=== PATIENT | female | born 1990 | race Caucasian/White ===

== ENCOUNTER 2018-12-13 16:23 | Inpatient (IN) | payer OTHER ==
[~2018-12-13] VITALS: Ht 157.5 cm; Wt 75.0 kg
--- NOTE | 2018-12-13 17:10 | NUR ---
PATIENT ARRIVED TO ROOM AMBULATORY WITH FAMILY AT BEDSIDE, PATIENT STATED SHE HAS NOT EATEN ALL DAY AND WAS UNSURE IF SHE COULD GIVE A URINE SAMPLE, PT HAS ORDERS FOR BOLUS OF 1000ML OF N/S. ADVISED PT I WOULD NEED TO START IV AND START FLUIDS AND THEN CHECK WITH LEONARDO ANN IF SHE CAN EAT. PT HAS 22G IN RT FOREARM X1 STICK, PT TO BE NPO AFTER MIDNIGHT, PER MANJIT PT MAY HAVE CLEAR LIQUIDS, GAVE PT POPSICLE FOR NOW. NO S/S OF DISTRESS, PT STATES PAIN IS TOLERABLE, AFTER BOLUS WILL ADMINISTER PRN MEDS WELL ORDERED ABX. BED IN LOWEST POSITION, CL IN REACH CONTINUE WITH PLAN OF CARE
[2018-12-13] MEDS ORDERED: DOXYCYCLINE HY100 M2 PO (17:57)
[2018-12-13 18:44] VITALS: BMI 30.2
[2018-12-13 19:31] LABS: HEMOGLOBIN 10.2 g/dL (12-16); IMMATURE GRANULOCYTES 1.2 % (0-5); MCH 29.6 pg (26.0-34.0); MCHC 35.2 g/dL (31.0-37.0); MCV 84.1 fL (80.0-100.0); MEAN PLATELET VOLUME 9.5 fL (7.4-10.4); PLATELET COUNT 119 10x3/uL (130-400); RBC 3.45 10x6/uL (4.00-5.40); RDW 13.8 % (11.5-14.5); WBC 17.2 10x3/uL (4.8-10.8)
[2018-12-13 19:48] LABS: LYMPHOCYTES 9 % (15-50); NEUTROPHILS 89 % (40-80)
[2018-12-13 19:49] LABS: PLATELET ESTIMATE DECREASED
[2018-12-13 19:58] LABS: ANION GAP 10.3 mmol/L (8-16); BILIRUBIN - TOTAL 2.64 mg/dL (0.2-1.3); CALCIUM 7.8 mg/dL (8.5-10.1); CARBON DIOXIDE 25.5 mmol/L (21.0-32.0); CREATININE - SERUM 1.7 mg/dL (0.6-1.3)
[2018-12-13 20:01] LABS: POTASSIUM - SERUM 2.8 mmol/L (3.5-5.1)
[2018-12-13 22:19] VITALS: BP 130/88
[2018-12-13 23:29] LABS: HCG URINE NEGATIVE (NEGATIVE)
[2018-12-13 23:31] LABS: APPEARANCE CLOUDY (CLEAR); BACTERIA FEW /hpf (NONE SEEN); BILIRUBIN NEGATIVE (NEGATIVE); COLOR YELLOW (YELLOW); EPITHELIAL CELLS RARE /hpf (0-5); GLUCOSE NEGATIVE (NEGATIVE); KETONE NEGATIVE (NEGATIVE); NITRITE NEGATIVE (NEGATIVE); PROTEIN NEGATIVE (NEGATIVE); SPECIFIC GRAVITY 1.005 (1.005-1.020); UROBILINOGEN NORMAL (NORMAL)
[2018-12-14] VITALS (11 sets, daily range): BP systolic 118–133; BP diastolic 72–91; Ht 157.5 cm; Wt 75.0 kg
[2018-12-14 04:09] LABS: BASOPHILS 0.2 % (0-2); EOSINOPHILS 0.3 % (0-7); HEMATOCRIT 26.7 % (36.0-48.0); HEMOGLOBIN 9.4 g/dL (12-16); IMMATURE GRANULOCYTES 2.6 % (0-5); LYMPHOCYTES 6.7 % (15-50); MCH 29.4 pg (26.0-34.0); MCHC 35.2 g/dL (31.0-37.0); MCV 83.4 fL (80.0-100.0); MEAN PLATELET VOLUME 9.4 fL (7.4-10.4); MONOCYTES 7.5 % (2-11); NEUTROPHILS 82.7 % (40-80); PLATELET COUNT 113 10x3/uL (130-400); RDW 13.7 % (11.5-14.5)
[2018-12-14 04:11] LABS: INR 1.28 (0.85-1.17); PROTIME 15.5 SECONDS (11.6-15.0)
[2018-12-14 04:12] LABS: APTT 38.8 SECONDS (22.8-39.4)
[2018-12-14 04:17] LABS: ALBUMIN 1.8 g/dL (3.4-5.0); ANION GAP 13.7 mmol/L (8-16); BILIRUBIN - TOTAL 3.04 mg/dL (0.2-1.3); CARBON DIOXIDE 23.5 mmol/L (21.0-32.0); CREATININE - SERUM 1.7 mg/dL (0.6-1.3); PHOSPHOROUS 2.6 mg/dL (2.5-4.9); POTASSIUM - SERUM 3.2 mmol/L (3.5-5.1); PROTEIN - SERUM 5.7 g/dL (6.4-8.2)
--- NOTE | 2018-12-14 04:50 | NUR ---
I have reviewed this patient and I concur with the Shift Assessment completed by the Licensed Practical Nurse today this shift.
[2018-12-14 08:13] LABS: HCG SERUM NEGATIVE (NEGATIVE)
--- NOTE | 2018-12-14 20:00 | NUR ---
SITTING UP IN BED, HAS BEEN UP AMBULATING IN HALLWAY, ABD TENDER WITH STERI STRIPS INTACT TO LAP SITES X 5, SEE SHIFT ASSESSMENT, CALL LIGHT IN REACH
[2018-12-15 00:48] VITALS: BP 110/81
[2018-12-15 05:36] VITALS: BP 149/90
[2018-12-15 06:44] LABS: BASOPHILS 0.1 % (0-2); EOSINOPHILS 0 % (0-7); HEMOGLOBIN 9.1 g/dL (12-16); IMMATURE GRANULOCYTES 4.2 % (0-5); LYMPHOCYTES 6.4 % (15-50); MCH 29.9 pg (26.0-34.0); MEAN PLATELET VOLUME 9.9 fL (7.4-10.4); MONOCYTES 4.2 % (2-11); NEUTROPHILS 85.1 % (40-80); RBC 3.04 10x6/uL (4.00-5.40); RDW 14.8 % (11.5-14.5); WBC 9.8 10x3/uL (4.8-10.8)
[2018-12-15 07:02] LABS: ALBUMIN 1.7 g/dL (3.4-5.0); ANION GAP 14.2 mmol/L (8-16); BILIRUBIN - TOTAL 2.48 mg/dL (0.2-1.3); CALCIUM 8.5 mg/dL (8.5-10.1); CARBON DIOXIDE 20.3 mmol/L (21.0-32.0); CREATININE - SERUM 1.3 mg/dL (0.6-1.3); MAGNESIUM - SERUM 2.3 mg/dL (1.8-2.4); PHOSPHOROUS 2.7 mg/dL (2.5-4.9); POTASSIUM - SERUM 4.5 mmol/L (3.5-5.1); PROTEIN - SERUM 5.9 g/dL (6.4-8.2)
[2018-12-15 07:03] LABS: MCV 85.5 fL (80.0-100.0); PLATELET COUNT 143 10x3/uL (130-400)
--- NOTE | 2018-12-15 07:41 | NUR ---
AWAKE AND ALERT. ORIENTED X3. NO C/O AT THIS TIME. BP IS ELEVATED AT 140/104 MANUALLY. WILL MONITOR. PATIENT REPORTS IT'S ALWAYS HIGH WHEN SHE GOES TO THE DOCTOR R/T NERVOUSNESS. LUNGS ARE CLEAR BILATERALLY, NO COUGH NOTED. SKIN IS INTACT WITHOUT REDNESS EXCEPT 4 SMALL INSERTION SITES TO ABDOMEN WHICH ARE CLEAN AND DRY. IV TO RIGHT FOREARM IS PATENT WITHOUT REDNESS AT INSERTION SITE. DENIES NEEDS. ASSISTED UP TO SIDE OF BED FOR AMBULATION.
[2018-12-15 08:28] VITALS: BP 139/91
[2018-12-15] MEDS ORDERED: HYDROCODON-ACE1 EAC7 PO (08:28)
--- NOTE | 2018-12-15 10:10 | NUR ---
ATE MOST OF BREAKFAST. REQUESTED AND GIVEN ONE HYDROCODONE PO FOR C/O ABDOMINAL PAIN LEVEL 3. WILL MONITOR.
--- NOTE | 2018-12-15 12:30 | NUR ---
DISCHARGED TO HOME AMBULATORY WITH FAMILY. DISCHARGE INSTRUCTIONS GIVEN BOTH VERBALLY AND WRITTEN. ALL QUESTIONS ANSWERED. PATIENT AND MOTHER VERBALIZED UNDERSTANDING OF SAME. IV TO RIGHT WRIST D/C WTIH CATHETER INTACT. ALL BELONGINGS WITH PATIENT. NEEDED PRESCRIPTIONS GIVEN TO PATIENT.
[2018-12-15 12:42] VITALS: BP 135/87
== END 2018-12-15 12:30 | disposition home or self-care (01) | DRG 418 ==
LOC: D.SDCHOLD 16:23 → D.MS 16:23
PROVIDERS: Anesthesiology; Family Medicine; Surgery; ADMIT Family Medicine; ATTEND Family Medicine
PROC: BF12YZZ Fluoroscopy of Gallbladder using Other Contrast (ICD-10-PCS; 2018-12-14)
PROC: 0FT44ZZ Resection of Gallbladder, Percutaneous Endoscopic Approach (ICD-10-PCS; principal; 2018-12-14 13:15)
DX: K81.0 Acute cholecystitis (principal); N17.9 Acute kidney failure, unspecified; E87.1 Hypo-osmolality and hyponatremia; E86.0 Dehydration; E87.6 Hypokalemia; E83.51 Hypocalcemia; D69.6 Thrombocytopenia, unspecified; D64.9 Anemia, unspecified